=== PATIENT | female | born 1955 | race Caucasian/White ===

== ENCOUNTER 2016-10-13 16:54 | Observation (INO) ==
[2016-10-13 18:10] LABS: Bilirubin,Urine Negative (Negative); Blood,Urine Negative (Negative); Clarity,Urine Clear (Clear); Color,Urine Yellow (Yellow); Glucose,Urine (UA) Normal (Normal); Ketones,Urine Negative (Negative); Leukocyte Esterase,Urine Negative (Negative); Nitrite,Urine Negative (Negative); PH,Urine 6.5 pH Units (5.0-8.0); Protein,Urine Negative (Neg-Trace); Specific Gravity,Urine 1.022 (1.010-1.025); Urobilinogen,Urine Normal (Normal)
[2016-10-13] MEDS ORDERED: Ondansetron 4 MG/2 ML VIAL IVP ONE (18:25)
[2016-10-13] MEDS ORDERED: 0.9 % Sodium Chloride 1,000 ML IVC ONE (18:25)
[2016-10-13] MEDS ORDERED: Ketorolac 15 MG/ML VIAL IVP ONE (18:25)
--- NOTE | 2016-10-13 18:27 | Emergency Department Note ---
Disposition Clinical Impression: Diverticulitis Qualifiers: Diverticulitis site: large intestine Diverticulitis bleeding: without bleeding Diverticulitis complication: without perforation or abscess Qualified Code(s): K57.32 - Diverticulitis of large intestine without perforation or abscess without bleeding Disposition: Admitted As Inpatient Condition: Good Time of Disposition: 21:54 Abdominal Pain HPI - General Chief Complaint: ED Abdominal Pain Stated Complaint: Diverticulitis Time Seen by Provider: 10/13/16 18:13 Source: patient Nursing Notes Reviewed: Yes Vital Signs Reviewed: Yes - History of Present Illness HPI Narrative: 61-year-old diabetic complains of left-sided lower abdominal pain that started 3 nights ago. She mentions she took an ibuprofen PM to help her fall asleep, but the pain has been worsening. She mentioned she had felt feverish at home. She states she was at her PCP, Dr. Jean Baptiste, earlier today and was advised to come to the emergency department. She had a temp of 101.7 and heart rate of 115 her PCP office. She mentions her doctor was concerned for diverticulitis elevated white count. She does mention a history of diverticulitis she mentions he had a fever at home as well. She denies any bowel or bladder changes, melena, nausea, vomiting, bloody stools. Pain Scale: 7 - Related Data Home Medications Medication Instructions Recorded Confirmed Albuterol Sulfate [Proair Hfa] 2 puff IH Q6-8H PRN 10/13/16 10/13/16 Aspirin 81 mg PO DAILY 10/13/16 10/13/16 Fenofibrate Nanocrystallized 145 mg PO DAILY 10/13/16 10/13/16 [Tricor] Lactobacillus Acidophilus 1 mg PO DAILY 10/13/16 10/13/16 [Acidophilus Probiotic] Loratadine [Allergy Relief] 10 mg PO DAILY 10/13/16 10/13/16 Losartan Potassium [Cozaar] 100 mg PO DAILY 10/13/16 10/13/16 Meclizine [Antivert] 25 mg PO DAILY PRN 10/13/16 10/13/16 Minocycline [Minocin] 50 mg PO DAILY 10/13/16 10/13/16 Omeprazole 40 mg PO DAILY 10/13/16 10/13/16 Ondansetron HCl [Zofran] 8 mg PO DAILY PRN 10/13/16 10/13/16 metFORMIN [Glucophage] 500 mg PO BIDWM 10/13/16 10/13/16 Allergies Allergy/AdvReac Type Severity Reaction Status Date / Time No Known Allergies Allergy Verified 10/13/16 16:58 All systems ED: reviewed and negative except as stated. Constitutional: Reports: as per HPI. Denies: weakness Eyes: Denies: eye pain ENT ED: Denies: ear pain Cardiovascular: Denies: chest pain, palpitations Respiratory: Denies: cough, dyspnea, wheezes Gastrointestinal: Reports: as per HPI. 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 Absent: prolonged expiratory phase - Cardiovascular Cardiovascular exam: Present: normal rhythm, tachycardia - Abdominal Exam Abdominal exam: Present: soft, tenderness Abdominal tenderness: Present: LLQ - Extremities Exam Extremities exam: Present: normal inspection, full ROM, normal capillary refill - Back Exam Back exam: Present: full ROM - Neurological Exam Neurological exam: Present: alert, oriented X3 - Psychiatric Psychiatric exam: Present: normal affect, normal mood - Skin Skin exam: Present: warm, dry, intact, normal color. Absent: rash, cyanosis, diaphoresis Course Course Narrative: Patient presents with abdominal pain. He was seen earlier today at Dr. Jean Baptiste' s office, sent to ED for concern for diverticulitis. Patient seen and examined. She is in no acute distress. Does not look toxic. She does mention she had a fever prior to arrival. Triage vitals Slightly tachycardic otherwise normal vitals. Workup initiated. Patient declines narcotic medications at this time due to constipation. She denies any history of kidney disease, bleeding ulcers, and is agreeable to Toradol. - Reevaluation(s) Reevaluation #1: Results a CT show evidence for sigmoid diverticulitis. No evidence of perforation. Discussed patient with Dr. Luu who agreed with workup and evaluation and decision to admit. Time: 21:54 Reevaluation #2: Discussed with hospitalist Dr. kimberli ca, who agreed to accept patient for observation overnight. And we will consider discharge with outpatient therapy tomorrow. Time: 22:03 Vital Signs Temperature 99.6 F 10/13/16 16:56 Pulse Rate 107 10/13/16 16:56 Respiratory Rate 18 10/13/16 16:56 Blood Pressure 156/78 10/13/16 16:56 O2 Sat by Pulse Oximetry 96 10/13/16 16:56 Temperature 98.8 F 10/14/16 03:32 Pulse Rate 83 10/14/16 03:32 Respiratory Rate 13 10/14/16 03:32 Blood Pressure 117/77 10/14/16 03:32 O2 Sat by Pulse Oximetry 98 10/14/16 03:32 Oxygen Delivery Oxygen Delivery Room Air Abdominal Pain - MDM Narrative Medical decision making narrative: Abdomen/Pelvis CT 10/13/16 19:58 IMPRESSION: 1. Findings compatible with diverticulitis of the sigmoid colon. No evidence of perforation. 2. Hepatic steatosis. D/ / Joseph Pabon MD / Joseph Pabon MD Interpreting Provider: Joseph Pabon MD All Lab Results (24 Hours) 10/13/16 10/13/16 10/13/16 Range/Units 17:45 18:27 18:27 WBC 14.4 H (4.3-11.1) K/mcL RBC 5.09 H (3.82-4.97) M/mcL Hgb 14.7 (11.5-15.4) g/dL Hct 43.0 (35.3-44.9) % MCV 84.5 (83.0-100.0) fL MCH 28.9 (28.0-33.3) pg MCHC 34.2 (31.6-35.5) g/dL RDW 11.9 (11.5-14.5) % Plt Count 267 (140-400) K/mcL MPV 11.5 (9.4-12.4) fL Immature Gran % 0.3 (0-4) % Seg Neutrophils % 80.0 % Lymphocytes % 11.5 % Monocytes % 7.8 % Eosinophils % 0.2 % Basophils % 0.2 % Neutrophils # 11.5 H (1.6-8.9) K/mcL Lymphocytes # 1.7 (0.6-4.6) K/mcL Monocytes # 1.1 (0.0-1.3) K/mcL Eosinophils # 0.0 (0.0-0.6) K/mcL Basophils # 0.0 (0.0-0.2) K/mcL Sodium 134 L (136-145) mEq/L Potassium 3.8 (3.5-4.5) mEq/L Chloride 100 (98-109) mEq/L Carbon Dioxide 27 (19-29) mEq/L BUN 14 (7-20) mg/dL Creatinine 0.82 (0.57-1.11) mg/dL Est GFR ( Amer) > 60 (> 60) Est GFR (Non-Af Amer) > 60 (> 60) BUN/Creatinine Ratio 17 (6-26) Glucose 132 H (70-99) mg/dL Calculated Osmolality 280 (280-300) Lactic Acid (0.5-2.2) mmol/L Calcium 9.7 (8.6-10.8) mg/dL Total Bilirubin 1.0 (0.2-1.2) mg/dL Direct Bilirubin 0.4 (0.0-0.5) mg/dL Indirect Bilirubin 0.6 (0.0-1.2) mg/dL AST 15 (5-34) Units/L ALT 28 (0-55) Units/L Alkaline Phosphatase 77 (38-126) Units/L Serum Total Protein 7.3 (6.0-8.3) g/dL Albumin 3.7 (3.5-5.0) g/dL Globulin 3.6 H (2.4-3.5) g/dL Albumin/Globulin Ratio 1.0 L (1.1-2.2) Lipase < 10 (8-78) Units/L Urine Color Yellow (Yellow) Urine Clarity Clear (Clear) Urine pH 6.5 (5.0-8.0) pH Units Ur Specific [place] 1.022 (1.010-1.025) Urine Protein Negative (Neg-Trace) mg/dL Urine Glucose (UA) Normal (Normal) mg/dL Urine Ketones Negative (Negative) mg/dL Urine Blood Negative (Negative) Urine Nitrite Negative (Negative) Urine Bilirubin Negative (Negative) Urine Urobilinogen Normal (Normal) mg/dL Ur Leukocyte Esterase Negative (Negative) Ur Culture Indicated? NO (NO) 10/13/16 Range/Units 18:27 WBC (4.3-11.1) K/mcL RBC (3.82-4.97) M/mcL Hgb (11.5-15.4) g/dL Hct (35.3-44.9) % MCV (83.0-100.0) fL MCH (28.0-33.3) pg MCHC (31.6-35.5) g/dL RDW (11.5-14.5) % Plt Count (140-400) K/mcL MPV (9.4-12.4) fL Immature Gran % (0-4) % Seg Neutrophils % % Lymphocytes % % Monocytes % % Eosinophils % % Basophils % % Neutrophils # (1.6-8.9) K/mcL Lymphocytes # (0.6-4.6) K/mcL Monocytes # (0.0-1.3) K/mcL Eosinophils # (0.0-0.6) K/mcL Basophils # (0.0-0.2) K/mcL Sodium (136-145) mEq/L Potassium (3.5-4.5) mEq/L Chloride (98-109) mEq/L Carbon Dioxide (19-29) mEq/L BUN (7-20) mg/dL Creatinine (0.57-1.11) mg/dL Est GFR ( Amer) (> 60) Est GFR (Non-Af Amer) (> 60) BUN/Creatinine Ratio (6-26) Glucose (70-99) mg/dL Calculated Osmolality (280-300) Lactic Acid 1.5 (0.5-2.2) mmol/L Calcium (8.6-10.8) mg/dL Total Bilirubin (0.2-1.2) mg/dL Direct Bilirubin (0.0-0.5) mg/dL Indirect Bilirubin (0.0-1.2) mg/dL AST (5-34) Units/L ALT (0-55) Units/L Alkaline Phosphatase (38-126) Units/L Serum Total Protein (6.0-8.3) g/dL Albumin (3.5-5.0) g/dL Globulin (2.4-3.5) g/dL Albumin/Globulin Ratio (1.1-2.2) Lipase (8-78) Units/L Urine Color (Yellow) Urine Clarity (Clear) Urine pH (5.0-8.0) pH Units Ur Specific [place] (1.010-1.025) Urine Protein (Neg-Trace) mg/dL Urine Glucose (UA) (Normal) mg/dL Urine Ketones (Negative) mg/dL Urine Blood (Negative) Urine Nitrite (Negative) Urine Bilirubin (Negative) Urine Urobilinogen (Normal) mg/dL Ur Leukocyte Esterase (Negative) Ur Culture Indicated? (NO) - Lab Data Lab results reviewed: Yes I reviewed the patient's lab results. Result diagrams: 10/13/16 18:27 10/13/16 18:27 Lab Results 10/13/16 10/13/16 10/13/16 Range/Units 17:45 18:27 18:27 WBC 14.4 H (4.3-11.1) K/mcL RBC 5.09 H (3.82-4.97) M/mcL Hgb 14.7 (11.5-15.4) g/dL Hct 43.0 (35.3-44.9) % MCV 84.5 (83.0-100.0) fL MCH 28.9 (28.0-33.3) pg MCHC 34.2 (31.6-35.5) g/dL RDW 11.9 (11.5-14.5) % Plt Count 267 (140-400) K/mcL MPV 11.5 (9.4-12.4) fL Immature Gran % 0.3 (0-4) % Seg Neutrophils % 80.0 % Lymphocytes % 11.5 % Monocytes % 7.8 % Eosinophils % 0.2 % Basophils % 0.2 % Neutrophils # 11.5 H (1.6-8.9) K/mcL Lymphocytes # 1.7 (0.6-4.6) K/mcL Monocytes # 1.1 (0.0-1.3) K/mcL Eosinophils # 0.0 (0.0-0.6) K/mcL Basophils # 0.0 (0.0-0.2) K/mcL Sodium 134 L (136-145) mEq/L Potassium 3.8 (3.5-4.5) mEq/L Chloride 100 (98-109) mEq/L Carbon Dioxide 27 (19-29) mEq/L BUN 14 (7-20) mg/dL Creatinine 0.82 (0.57-1.11) mg/dL Est GFR ( Amer) > 60 (> 60) Est GFR (Non-Af Amer) > 60 (> 60) BUN/Creatinine Ratio 17 (6-26) Glucose 132 H (70-99) mg/dL Calculated Osmolality 280 (280-300) Lactic Acid (0.5-2.2) mmol/L Calcium 9.7 (8.6-10.8) mg/dL Total Bilirubin 1.0 (0.2-1.2) mg/dL Direct Bilirubin 0.4 (0.0-0.5) mg/dL Indirect Bilirubin 0.6 (0.0-1.2) mg/dL AST 15 (5-34) Units/L ALT 28 (0-55) Units/L Alkaline Phosphatase 77 (38-126) Units/L Serum Total Protein 7.3 (6.0-8.3) g/dL Albumin 3.7 (3.5-5.0) g/dL Globulin 3.6 H (2.4-3.5) g/dL Albumin/Globulin Ratio 1.0 L (1.1-2.2) Lipase < 10 (8-78) Units/L Urine Color Yellow (Yellow) Urine Clarity Clear (Clear) Urine pH 6.5 (5.0-8.0) pH Units Ur Specific [place] 1.022 (1.010-1.025) Urine Protein Negative (Neg-Trace) mg/dL Urine Glucose (UA) Normal (Normal) mg/dL Urine Ketones Negative (Negative) mg/dL Urine Blood Negative (Negative) Urine Nitrite Negative (Negative) Urine Bilirubin Negative (Negative) Urine Urobilinogen Normal (Normal) mg/dL Ur Leukocyte Esterase Negative (Negative) Ur Culture Indicated? NO (NO) 10/13/16 Range/Units 18:27 WBC (4.3-11.1) K/mcL RBC (3.82-4.97) M/mcL Hgb (11.5-15.4) g/dL Hct (35.3-44.9) % MCV (83.0-100.0) fL MCH (28.0-33.3) pg MCHC (31.6-35.5) g/dL RDW (11.5-14.5) % Plt Count (140-400) K/mcL MPV (9.4-12.4) fL Immature Gran % (0-4) % Seg Neutrophils % % Lymphocytes % % Monocytes % % Eosinophils % % Basophils % % Neutrophils # (1.6-8.9) K/mcL Lymphocytes # (0.6-4.6) K/mcL Monocytes # (0.0-1.3) K/mcL Eosinophils # (0.0-0.6) K/mcL Basophils # (0.0-0.2) K/mcL Sodium (136-145) mEq/L Potassium (3.5-4.5) mEq/L Chloride (98-109) mEq/L Carbon Dioxide (19-29) mEq/L BUN (7-20) mg/dL Creatinine (0.57-1.11) mg/dL Est GFR ( Amer) (> 60) Est GFR (Non-Af Amer) (> 60) BUN/Creatinine Ratio (6-26) Glucose (70-99) mg/dL Calculated Osmolality (280-300) Lactic Acid 1.5 (0.5-2.2) mmol/L Calcium (8.6-10.8) mg/dL Total Bilirubin (0.2-1.2) mg/dL Direct Bilirubin (0.0-0.5) mg/dL Indirect Bilirubin (0.0-1.2) mg/dL AST (5-34) Units/L ALT (0-55) Units/L Alkaline Phosphatase (38-126) Units/L Serum Total Protein (6.0-8.3) g/dL Albumin (3.5-5.0) g/dL Globulin (2.4-3.5) g/dL Albumin/Globulin Ratio (1.1-2.2) Lipase (8-78) Units/L Urine Color (Yellow) Urine Clarity (Clear) Urine pH (5.0-8.0) pH Units Ur Specific [place] (1.010-1.025) Urine Protein (Neg-Trace) mg/dL Urine Glucose (UA) (Normal) mg/dL Urine Ketones (Negative) mg/dL Urine Blood (Negative) Urine Nitrite (Negative) Urine Bilirubin (Negative) Urine Urobilinogen (Normal) mg/dL Ur Leukocyte Esterase (Negative) Ur Culture Indicated? (NO) - Radiology Data Radiology results reviewed: Yes I reviewed the patient's radiology results. Attestation Statement - Attestation Attestation: I, Mason Luu, examined this patient and my medical decision-making was reviewed with the MAINTENANCE ENGINEER OIL FIELD/PA/Advanced Practice Nurse/Resident Physician. I agree with the documented findings, disposition and treatment plan as described except to the extent set forth below. 61-year-old female presents with concerns of left lower quadrant abdominal pain. Patient states that this feels similar to her previous diverticulitis however this feels worse. Patient states she was advised to come to the hospital by her primary care provider for further evaluation and likely IV antibiotics. Patient has a CT which shows diverticulitis. Vital signs have been stable. She states she is tolerating by mouth intake well at home however she does not feel comfortable returning home secondary to increased pain. Patient given first dose of antibiotics in the emergency department. She will be admitted to the hospital for further care and evaluation of diverticulitis.
[2016-10-13 18:32] LABS: Basophils % 0.2 %; Eosinophils % 0.2 %; Hemoglobin 14.7 g/dL (11.5-15.4); Immature Granulocytes % 0.3 % (0-4); Lymphocytes # 1.7 K/mcL (0.6-4.6); Lymphocytes % 11.5 %; Mean Corpuscular HGB Conc 34.2 g/dL (31.6-35.5); Mean Corpuscular Hemoglobin 28.9 pg (28.0-33.3); Mean Corpuscular Volume 84.5 fL (83.0-100.0); Mean Platelet Volume 11.5 fL (9.4-12.4); Monocytes # 1.1 K/mcL (0.0-1.3); Monocytes % 7.8 %; Neutrophils # 11.5 K/mcL (1.6-8.9); Platelet Count 267 K/mcL (140-400); Red Blood Count 5.09 M/mcL (3.82-4.97); Red Cell Distribution Width 11.9 % (11.5-14.5)
[2016-10-13 18:49] LABS: Alanine Aminotransferase 28 Units/L (0-55); Albumin 3.7 g/dL (3.5-5.0); Alkaline Phosphatase 77 Units/L (38-126); Aspartate Amino Transferase 15 Units/L (5-34); BUN/Creatinine Ratio 17 (6-26); Bilirubin,Direct 0.4 mg/dL (0.0-0.5); Bilirubin,Indirect 0.6 mg/dL (0.0-1.2); Blood Urea Nitrogen 14 mg/dL (7-20); Calcium 9.7 mg/dL (8.6-10.8); Carbon Dioxide 27 mEq/L (19-29); Chloride 100 mEq/L (98-109); Globulin 3.6 g/dL (2.4-3.5); Glucose 132 mg/dL (70-99); Osmolality,Calculated 280 (280-300); Potassium 3.8 mEq/L (3.5-4.5); Sodium 134 mEq/L (136-145); Total Protein 7.3 g/dL (6.0-8.3); eGFR For African Americans > 60 (> 60); eGFR For Non-African Americans > 60 (> 60)
[2016-10-13 18:52] LABS: Lipase < 10 Units/L (8-78)
[2016-10-13] MEDS ORDERED: MetroNIDAZOLE 500 MG/100 ML 500 MG/100 ML BAG IVPB ONE (21:37)
[2016-10-14] MEDS ORDERED: *HR* Morphine 2 MG/ML SYRINGE IVP PRN (04:51)
[2016-10-14] MEDS ORDERED: Naloxone 0.4 MG/ML INJ IVP PRN (04:51)
[2016-10-14] MEDS ORDERED: Ondansetron 4 MG/2 ML VIAL IVP PRN (04:51)
[2016-10-14] MEDS ORDERED: Acetaminophen 325 MG TABLET PO PRN (05:46)
[2016-10-14] MEDS ORDERED: *HR* OxyCODONE Immed Rel 5 MG TABLET PO PRN (05:46)
--- NOTE | 2016-10-14 05:56 | Internal Med History&Physical ---
Date of Encounter: 10/14/16 Time of Encounter: 05:54 Assessment and Plan (1) Acute diverticulitis Current visit: Yes Status: Acute Patient has acute diverticulitis as suggested by left lower quadrant pain and imaging findings consistent with diverticulitis. She has some nausea, no vomiting, questionable oral intake. Will place her in observation and start IV antibiotics and IV fluids. If she tolerates a diet will consider switching to oral medication. (2) Essential hypertension Current visit: Yes Status: Acute Continue with losartan. (3) DVT prophylaxis Current visit: Yes Status: Acute Encourage early ambulation. She does not require pharmacological prophylaxis. Internal Medicine - H&P: HPI Chief complaint: Abdominal pain Admitted From: Emergency Dept Plans for Post Hospital Care: Hospice - Home History of present illness: Ms. Vizcaino is a 61 year old female who presented to the hospital with abdominal pain which started 4 days ago and progressively got worse, located in the left lower quadrant, worse with movement and ambulation, described as cramping, became severe today, graded as 8/10, associated with fever of 101 at home. She was evaluated at the urgent care and referred to the hospital. Workup done in the emergency department was pertinent for elevated white blood cell count. CT of the abdomen and pelvis showed findings suggestive of acute diverticulitis. A 10 point review of systems was negative except as above Past medical history: History of diverticulitis, history of hypertension Family history: Negative for premature coronary artery disease and colon cancer Social history: Denies tobacco alcohol and drug use. Past Med Surg Social Fam HX - Past Medical History Medical history: diabetes, hypertension Psychiatric history: depression - Social History Smoking Status: Never smoker Packs per day: 1/2 pack Smokeless Tobacco Status: No Alcohol use: none Drug use: none - Family History Father Living Status: Cause of : Cirrhosis Mother Living Status: Cause of : surgical complications Internal Medicine - H&P: Meds Albuterol Sulfate [Proair Hfa] 2 puff IH Q6-8H PRN 10/13/16 [History] Aspirin 81 mg PO DAILY 10/13/16 [History] Fenofibrate Nanocrystallized [Tricor] 145 mg PO DAILY 10/13/16 [History] Lactobacillus Acidophilus [Acidophilus Probiotic] 1 mg PO DAILY 10/13/16 [ History] Loratadine [Allergy Relief] 10 mg PO DAILY 10/13/16 [History] Losartan Potassium [Cozaar] 100 mg PO DAILY 10/13/16 [History] Meclizine [Antivert] 25 mg PO DAILY PRN 10/13/16 [History] Minocycline [Minocin] 50 mg PO DAILY 10/13/16 [History] Omeprazole 40 mg PO DAILY 10/13/16 [History] Ondansetron HCl [Zofran] 8 mg PO DAILY PRN 10/13/16 [History] metFORMIN [Glucophage] 500 mg PO BIDWM 10/13/16 [History] Allergies No Known Allergies Allergy (Verified 10/13/16 16:58) All Systems PM: A 10-system review of systems was performed and is negative for pertinent findings except as documented above in the HPI. - Constitutional Vitals: Temp Pulse Resp BP Pulse Ox 98.8 F 83 13 117/77 98 10/14/16 03:32 10/14/16 03:32 10/14/16 03:32 10/14/16 03:32 10/14/16 03:32 - Respiratory Respiratory exam: Present: CTAB. Absent: accessory muscle use, rales, rhonchi, wheezes - Cardiovascular Cardiovascular exam: Present: RRR, +S1, +S2. Absent: diastolic murmur, gallop, rubs, systolic murmur - GI/Abdominal GI/Abdominal exam: Present: normal bowel sounds, soft, no peritoneal signs. Absent: distended, tenderness - Extremities Exam Extremities exam: Present: warm, radial pulses palpable and symetrical. Absent : calf tenderness, cyanotic, pedal edema - Skin Skin exam: Present: dry, intact Internal Med - H&P Results - Labs CBC & Chem 7: 10/13/16 18:27 10/13/16 18:27
[2016-10-14] MEDS ORDERED: Albuterol 2.5 MG/3 ML NEBULIZER IH PRN (05:58)
[2016-10-14] MEDS: Loratadine 10 MG TABLET PO SCH (08:30)
[2016-10-14] MEDS: Pantoprazole 40 MG VIAL IVP SCH (08:33)
[2016-10-14] MEDS: MetroNIDAZOLE 500 MG/100 ML 500 MG/100 ML BAG IVPB SCH ×2 (08:33→16:08)
[2016-10-14] MEDS ORDERED: Levofloxacin 750 MG/150 ML 750 MG/150 ML BAG IVPB SCH (09:00)
--- NOTE | 2016-10-14 10:18 | Event Note ---
Date of Encounter: 10/14/16 Time of Encounter: 09:45 61-year-old female with history of hypertension and diabetes was admitted with left lower abdominal pain and nausea. CT abdomen/pelvis showed sigmoid diverticulitis. Patient seen and examined at bedside. Reports improvement in left lower abdominal pain. Chest-S1, S2 heard. Lungs are clear to auscultation. Abdomen-soft, significant tenderness in left lower quadrant. Labs reviewed-leukocytosis with WBC 14.4 Acute sigmoid diverticulitis-continue medical management with bowel rest, IV hydration, when necessary antiemetics and pain control with when necessary IV morphine. We will start clear liquid diet later this evening and advance as tolerated. Continue IV antibiotics-Levaquin and Flagyl. Patient will need outpatient colonoscopy in 4-6 weeks.
[2016-10-15] MEDS: MetroNIDAZOLE 500 MG/100 ML 500 MG/100 ML BAG IVPB SCH ×2 (00:28→08:45)
[2016-10-15 04:31] LABS: Basophils % 0.6 %; Eosinophils # 0.2 K/mcL (0.0-0.6); Eosinophils % 2.4 %; Hematocrit 37.6 % (35.3-44.9); Immature Granulocytes % 0.3 % (0-4); Lymphocytes # 1.5 K/mcL (0.6-4.6); Lymphocytes % 20.8 %; Mean Corpuscular Hemoglobin 28.7 pg (28.0-33.3); Mean Corpuscular Volume 84.3 fL (83.0-100.0); Mean Platelet Volume 11.6 fL (9.4-12.4); Monocytes # 0.7 K/mcL (0.0-1.3); Monocytes % 10.3 %; Neutrophils # 4.7 K/mcL (1.6-8.9); Platelet Count 196 K/mcL (140-400); Red Blood Count 4.46 M/mcL (3.82-4.97); Red Cell Distribution Width 11.7 % (11.5-14.5); Segmented Neutrophils % 65.6 %
[2016-10-15 04:34] LABS: Hemoglobin 12.8 g/dL (11.5-15.4)
[2016-10-15 04:46] LABS: Alanine Aminotransferase 19 Units/L (0-55); Albumin/Globulin Ratio 0.8 (1.1-2.2); Alkaline Phosphatase 73 Units/L (38-126); Aspartate Amino Transferase 14 Units/L (5-34); BUN/Creatinine Ratio 19 (6-26); Bilirubin,Total 0.7 mg/dL (0.2-1.2); Blood Urea Nitrogen 14 mg/dL (7-20); Carbon Dioxide 24 mEq/L (19-29); Chloride 107 mEq/L (98-109); Globulin 3.5 g/dL (2.4-3.5); Glucose 117 mg/dL (70-99); Magnesium 1.9 mg/dL (1.6-2.6); Osmolality,Calculated 286 (280-300); Potassium 4.1 mEq/L (3.5-4.5); Sodium 137 mEq/L (136-145); Total Protein 6.3 g/dL (6.0-8.3); eGFR For African Americans > 60 (> 60); eGFR For Non-African Americans > 60 (> 60)
[2016-10-15 04:59] LABS: Albumin 2.8 g/dL (3.5-5.0)
[2016-10-15] MEDS ORDERED: Levofloxacin 500 MG/100 ML 500 MG/100 ML BAG IVPB SCH (09:00)
[2016-10-15] MEDS: Loratadine 10 MG TABLET PO SCH (11:13)
[2016-10-15] MEDS: Pantoprazole 40 MG VIAL IVP SCH (11:13)
--- NOTE | 2016-10-15 13:26 | Discharge Summary ---
Date of Encounter: 10/15/16 Time of Encounter: 13:16 - Discharge Diagnosis (1) Acute diverticulitis Priority: Primary Status: Acute (2) Diabetes mellitus Priority: Secondary Status: Chronic Qualifiers: Diabetes mellitus type: type 2 Diabetes mellitus complication status: with unspecified complications Diabetes mellitus long term care administrator insulin use: without long term care administrator use Qualified Code(s): E11.8 - Type 2 diabetes mellitus with unspecified complications (3) Essential hypertension Priority: Secondary Status: Chronic - Discharge Medications Prescriptions: levoFLOXacin [Levaquin] 500 mg PO DAILY #7 tablet metroNIDAZOLE [Flagyl] 500 mg PO TID #21 tablet Home Medications: Albuterol Sulfate [Proair Hfa] 2 puff IH Q6-8H PRN 10/13/16 [History] Aspirin 81 mg PO DAILY 10/13/16 [History] Fenofibrate Nanocrystallized [Tricor] 145 mg PO DAILY 10/13/16 [History] Lactobacillus Acidophilus [Acidophilus Probiotic] 1 mg PO DAILY 10/13/16 [ History] Loratadine [Allergy Relief] 10 mg PO DAILY 10/13/16 [History] Losartan Potassium [Cozaar] 100 mg PO DAILY 10/13/16 [History] Meclizine [Antivert] 25 mg PO DAILY PRN 10/13/16 [History] Minocycline [Minocin] 50 mg PO DAILY 10/13/16 [History] Omeprazole 40 mg PO DAILY 10/13/16 [History] Ondansetron HCl [Zofran] 8 mg PO DAILY PRN 10/13/16 [History] metFORMIN [Glucophage] 500 mg PO BIDWM 10/13/16 [History] levoFLOXacin [Levaquin] 500 mg PO DAILY #7 tablet 10/15/16 [Rx] metroNIDAZOLE [Flagyl] 500 mg PO TID #21 tablet 10/15/16 [Rx] Allergies/Adverse Reactions: Allergies No Known Allergies Allergy (Verified 10/13/16 16:58) - Notes to Outpatient Provider Patient may need interval Colonoscopy in 4-6 weeks, to be scheduled as outpatient. Please follow up, thanks. Date of admission: 10/13/16 22:26 Primary care physician: Ortega Carbone MD Discharging clinician: Trudi Moe Anticipated date of discharge: 10/15/16 - Patient Status Disposition: Home, Self-Care Condition: Good Functional capacity at discharge: independent ambulation Overall status at discharge: patient is progressing back to baseline - Discharge Instructions Instructions: Diverticulitis (DC), Diverticulitis Diet (DC) Follow Up With: Ortega Carbone MD [Primary Care Provider] - 10/22/16 2:15 pm - Diet and Activity Activity: resume usual activities as tolerated Diet: diabetic diet, low fat, low cholesterol, low salt diet Hospital course: Ms. Vizcaino is a 61 year old female admitted with sudden onset of left lower abdominal pain, nausea, vomiting. She was noted to have leukocytosis. CT abdomen/pelvis done in the emergency room showed acute sigmoid diverticulitis. Patient was started on IV antibiotics along with bowel rest, IV hydration and supportive care. She improved gradually and is currently able to tolerate oral diet. She is now medically stable for discharge to complete a course of oral antibiotics and outpatient follow-up. Patient will need interval colonoscopy to be arranged as an outpatient, in 6-8 weeks. - Time Spent with Patient Total time spent providing and/or coordinating discharge services: Greater than 30 minutes (45 min) - Constitutional Vitals: Temp Pulse Resp BP Pulse Ox 97.7 F 75 18 125/76 98 10/15/16 12:02 10/15/16 12:02 10/15/16 12:02 10/15/16 12:02 10/15/16 12:02 General appearance: Present: A&O X 3, answers questions appropriately - GI/Abdominal GI/Abdominal exam: Present: normal bowel sounds, soft (mild LLQ tenderness), no peritoneal signs. Absent: distended, tenderness
[2016-10-15 14:45] VITALS: BP 121/72
== END 2016-10-15 15:39 | disposition home or self-care (01) ==
LOC: EMEROO 16:54 → 3ANU 16:54
PROVIDERS: ADMIT Internal Medicine; ATTEND Internal Medicine

== ENCOUNTER 2017-01-19 10:58 | Observation (INO) ==
--- NOTE | 2017-01-19 11:09 | Emergency Department Note ---
Disposition Clinical Impression: Vertigo Abdominal pain Qualifiers: Abdominal location: unspecified location Qualified Code(s): R10.9 - Unspecified abdominal pain Diverticulitis Qualifiers: Diverticulitis site: large intestine Diverticulitis bleeding: without bleeding Diverticulitis complication: without perforation or abscess Qualified Code(s): K57.32 - Diverticulitis of large intestine without perforation or abscess without bleeding Disposition: Admitted As Inpatient Condition: Fair Referrals: Ortega Carbone MD [Primary Care Provider] - Forms: ED Satisfaction Letter Time of Disposition: 13:27 Dizziness HPI - General Chief Complaint: ED Dizziness Stated Complaint: Vertigo, N/V Time Seen by Provider: 01/19/17 11:04 Source: patient, EMS Mode of arrival: EMS Limitations: no limitations Nursing Notes Reviewed: Yes Vital Signs Reviewed: Yes - History of Present Illness HPI Narrative: 61-year-old who has a history of vertigo who went to see her doctor yesterday due to abdominal pain and was diagnosed with diverticular disease based on examination was given a shot of antibiotics and started on to outpatient antibiotics which he took the medicine this morning she became very dizzy. She does have a history of underlying vertigo. 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 Timing: sudden onset Description: "room spinning", difficulty walking History of similar episodes: Yes History of trauma: No Severity: severe Improves with: nothing Worsens with: movement Associated symptoms: Reports: nausea, vomiting - Related Data Home Medications Medication Instructions Recorded Confirmed Albuterol Sulfate [Proair Hfa] 2 puff IH Q6-8H PRN 10/13/16 12/18/16 Aspirin 81 mg PO DAILY 10/13/16 12/18/16 Fenofibrate Nanocrystallized 145 mg PO DAILY 10/13/16 12/18/16 [Tricor] Lactobacillus Acidophilus 1 mg PO DAILY 10/13/16 12/18/16 [Acidophilus Probiotic] Loratadine [Allergy Relief] 10 mg PO DAILY 10/13/16 12/18/16 Losartan Potassium [Cozaar] 100 mg PO DAILY 10/13/16 12/18/16 Meclizine [Antivert] 25 mg PO DAILY PRN 10/13/16 12/18/16 Minocycline [Minocin] 50 mg PO 3XW 10/13/16 12/18/16 Omeprazole 40 mg PO DAILY 10/13/16 12/18/16 Ondansetron HCl [Zofran] 8 mg PO DAILY PRN 10/13/16 10/13/16 metFORMIN [Glucophage] 500 mg PO BIDWM 10/13/16 12/18/16 Calcium Carbonate [Calcium] 500 mg PO DAILY 12/18/16 12/18/16 Psyllium Husk [Daily Fiber] 0.52 gm PO DAILY 12/18/16 12/18/16 Allergies Allergy/AdvReac Type Severity Reaction Status Date / Time No Known Allergies Allergy Verified 01/19/17 13:23 All systems ED: reviewed and negative except as stated. Constitutional: Denies: fever, chills, weakness, weight change Eyes: Denies: eye pain, eye discharge, vision change ENT ED: Denies: ear pain, throat pain, dental pain, hearing loss, epistaxis, congestion, dysphagia Cardiovascular: Denies: chest pain, palpitations, dyspnea on exertion, edema, syncope Respiratory: Denies: cough, dyspnea, wheezes, hemoptysis, stridor Gastrointestinal: Reports: abdominal pain. Denies: nausea, vomiting, diarrhea, constipation, hematemesis, melena, hematochezia Genitourinary: Denies: dysuria, frequency, hematuria, discharge Musculoskeletal: Denies: back pain, neck pain, arthralgia, myalgia Integumentary: Denies: rash, abrasion, lesions Neurological: Reports: vertigo. 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 - Social History Smoking Status: Never smoker Smokeless Tobacco Status: No Alcohol use: Reports: none Drug use: Reports: none Physical Exam - General Limitations: no limitations General appearance: alert, in no apparent distress - Head Head exam: atraumatic, normocephalic, normal inspection - Eye Eye exam: Present: normal appearance, PERRL, EOMI - ENT ENT exam: normal exam, normal oropharynx, mucous membranes moist - Neck Neck exam: Present: normal inspection, full ROM, trachea midline - Chest Chest inspection: Present: normal inspection, symmetric chest wall rise - Respiratory Respiratory exam: Present: normal lung sounds bilaterally - Cardiovascular Cardiovascular exam: Present: regular rate, normal rhythm, normal heart sounds - Abdominal Exam Abdominal exam: Present: soft, Non-Tender. Absent: tenderness, distention, guarding, rebound, rigidity - Extremities Exam Extremities exam: Present: normal inspection, full ROM. Absent: tenderness, pedal edema - Expanded Lower Extremity Exam Neurovascular/Tendon exam: Absent: motor deficit, sensory deficit, tendon deficit Gait: observed and normal - Back Exam Back exam: Present: normal inspection, full ROM. Absent: tenderness - Neurological Exam Neurological exam: Present: alert, oriented X3 - Psychiatric Psychiatric exam: Present: normal affect, normal mood - Skin Skin exam: Present: warm, dry, intact, normal color Course - Reevaluation(s) Reevaluation #1: 61-year-old with a history of previous diverticulitis and vertigo who comes in with abdominal pain and severe vertigo. The patient was seen by her doctor yesterday for abdominal pain and started on antibiotics. She's not sure whether the antibiotics triggered the vertigo but she has a lot of difficulty with the spinning and nausea vomiting not able to keep anything down. Then IV benzodiazepine along with meclizine here continues to have pretty severe dizziness with movement. Time: 13:25 - Consultations Consultation #1: Discussed with , it. Time: 13:24 Vital Signs Temperature 98.7 F 01/19/17 11:02 Pulse Rate 90 01/19/17 11:02 Respiratory Rate 24 01/19/17 11:02 Blood Pressure 165/99 01/19/17 11:02 O2 Sat by Pulse Oximetry 100 01/19/17 11:02 Temperature 98.7 F 01/19/17 11:02 Pulse Rate 93 01/19/17 12:20 Respiratory Rate 17 01/19/17 12:20 Blood Pressure 165/99 01/19/17 11:02 O2 Sat by Pulse Oximetry 95 01/19/17 12:20 Oxygen Delivery Oxygen Delivery Room Air Dizziness - Lab Data Lab results reviewed: Yes I reviewed the patient's lab results. Result diagrams: 01/19/17 11:23 01/19/17 11:23 Lab Results 01/19/17 01/19/17 01/19/17 Range/Units 11:15 11:23 11:23 WBC 8.7 (4.3-11.1) K/mcL RBC 5.12 H (3.82-4.97) M/mcL Hgb 14.6 (11.5-15.4) g/dL Hct 41.8 (35.3-44.9) % MCV 81.6 L (83.0-100.0) fL MCH 28.5 (28.0-33.3) pg MCHC 34.9 (31.6-35.5) g/dL RDW 11.8 (11.5-14.5) % Plt Count 257 (140-400) K/mcL MPV 11.5 (9.4-12.4) fL Immature Gran % 0.3 (0-4) % Seg Neutrophils % 87.9 % Lymphocytes % 8.0 % Monocytes % 3.3 % Eosinophils % 0.3 % Basophils % 0.2 % Neutrophils # 7.6 (1.6-8.9) K/mcL Lymphocytes # 0.7 (0.6-4.6) K/mcL Monocytes # 0.3 (0.0-1.3) K/mcL Eosinophils # 0.0 (0.0-0.6) K/mcL Basophils # 0.0 (0.0-0.2) K/mcL Sodium 139 (136-145) mEq/L Potassium 3.4 L (3.5-4.5) mEq/L Chloride 103 (98-109) mEq/L Carbon Dioxide 21 (19-29) mEq/L BUN 21 H (7-20) mg/dL Creatinine 0.89 (0.57-1.11) mg/dL Est GFR ( Amer) > 60 (> 60) Est GFR (Non-Af Amer) > 60 (> 60) BUN/Creatinine Ratio 24 (6-26) Glucose 179 H (70-99) mg/dL Calculated Osmolality 295 (280-300) Calcium 10.1 (8.6-10.8) mg/dL Troponin I (0-0.03) ng/mL Urine Color [place] A (Yellow) Urine Clarity Cloudy A (Clear) Urine pH 8.5 H (5.0-8.0) pH Units Ur Specific [place] > 1.030 H (1.010-1.025) Urine Protein 100 H (Neg-Trace) mg/dL Urine Glucose (UA) Normal (Normal) mg/dL Urine Ketones 15 H (Negative) mg/dL Urine Blood Negative (Negative) Urine Nitrite Negative (Negative) Urine Bilirubin Small H (Negative) Urine Urobilinogen Normal (Normal) mg/dL Ur Leukocyte Esterase Small H (Negative) Urine Microscopic RBC 0-3 (0-3) per hpf Urine Microscopic WBC 0-3 (0-3) per hpf Ur Squamous Epith Cells Many H (None-Few) per lpf Amorphous Sediment Moderate H (Few) Urine Bacteria None Seen (None-Few) per hpf Granular Casts Few H (None Seen) per lpf Urine Mucus Moderate H (Few) Ur Culture Indicated? YES A (NO) 01/19/17 Range/Units 11:23 WBC (4.3-11.1) K/mcL RBC (3.82-4.97) M/mcL Hgb (11.5-15.4) g/dL Hct (35.3-44.9) % MCV (83.0-100.0) fL MCH (28.0-33.3) pg MCHC (31.6-35.5) g/dL RDW (11.5-14.5) % Plt Count (140-400) K/mcL MPV (9.4-12.4) fL Immature Gran % (0-4) % Seg Neutrophils % % Lymphocytes % % Monocytes % % Eosinophils % % Basophils % % Neutrophils # (1.6-8.9) K/mcL Lymphocytes # (0.6-4.6) K/mcL Monocytes # (0.0-1.3) K/mcL Eosinophils # (0.0-0.6) K/mcL Basophils # (0.0-0.2) K/mcL Sodium (136-145) mEq/L Potassium (3.5-4.5) mEq/L Chloride (98-109) mEq/L Carbon Dioxide (19-29) mEq/L BUN (7-20) mg/dL Creatinine (0.57-1.11) mg/dL Est GFR ( Amer) (> 60) Est GFR (Non-Af Amer) (> 60) BUN/Creatinine Ratio (6-26) Glucose (70-99) mg/dL Calculated Osmolality (280-300) Calcium (8.6-10.8) mg/dL Troponin I 0.00 (0-0.03) ng/mL Urine Color (Yellow) Urine Clarity (Clear) Urine pH (5.0-8.0) pH Units Ur Specific [place] (1.010-1.025) Urine Protein (Neg-Trace) mg/dL Urine Glucose (UA) (Normal) mg/dL Urine Ketones (Negative) mg/dL Urine Blood (Negative) Urine Nitrite (Negative) Urine Bilirubin (Negative) Urine Urobilinogen (Normal) mg/dL Ur Leukocyte Esterase (Negative) Urine Microscopic RBC (0-3) per hpf Urine Microscopic WBC (0-3) per hpf Ur Squamous Epith Cells (None-Few) per lpf Amorphous Sediment (Few) Urine Bacteria (None-Few) per hpf Granular Casts (None Seen) per lpf Urine Mucus (Few) Ur Culture Indicated? (NO) - Radiology Data Radiology results reviewed: Yes I reviewed the patient's radiology results. Chest X-Ray 01/19/17 11:04 IMPRESSION: No active cardiopulmonary disease D/ / Nehemias Valenzuela MD / Nehemias Valenzuela MD Interpreting Provider: Nehemias Valenzuela MD Head CT 01/19/17 11:04 IMPRESSION: No acute intracranial abnormality. D/ / Jermaine Martínez MD / Jermaine Martínez MD Interpreting Provider: Jermaine Martínez MD Abdomen/Pelvis CT 01/19/17 11:06 IMPRESSION: 1. Uncomplicated sigmoid diverticulitis 2. Hepatic steatosis D/ / Nehemias Valenzuela MD / Nehemias Valenzuela MD Interpreting Provider: Nehemias Valenzuela MD - EKG Data EKG attestation: Yes I reviewed and interpreted this EKG. EKG shows normal: sinus rhythm Rate: normal Rhythm: PVC's [place]/QRS: normal Interpretation: nonspecific ST-T wave changes
[2017-01-19] MEDS ORDERED: Ondansetron 4 MG/2 ML VIAL IVP ONE (11:12)
[2017-01-19 11:26] LABS: Bilirubin,Urine Small (Negative); Blood,Urine Negative (Negative); Clarity,Urine Cloudy (Clear); Color,Urine Orange (Yellow); Glucose,Urine (UA) Normal (Normal); Ketones,Urine 15 mg/dL (Negative); Leukocyte Esterase,Urine Small (Negative); Nitrite,Urine Negative (Negative); PH,Urine 8.5 pH Units (5.0-8.0); Protein,Urine 100 mg/dL (Neg-Trace); Specific Gravity,Urine > 1.030 (1.010-1.025); Urobilinogen,Urine Normal (Normal)
[2017-01-19 11:29] LABS: Bacteria,Urine None Seen per hpf (None-Few); Squamous Epithelial Cell,Urine Many per lpf (None-Few); WBC,Urine 0-3 per hpf (0-3)
[2017-01-19 11:32] LABS: Basophils % 0.2 %; Eosinophils % 0.3 %; Hematocrit 41.8 % (35.3-44.9); Hemoglobin 14.6 g/dL (11.5-15.4); Immature Granulocytes % 0.3 % (0-4); Lymphocytes # 0.7 K/mcL (0.6-4.6); Mean Corpuscular HGB Conc 34.9 g/dL (31.6-35.5); Mean Corpuscular Hemoglobin 28.5 pg (28.0-33.3); Mean Corpuscular Volume 81.6 fL (83.0-100.0); Mean Platelet Volume 11.5 fL (9.4-12.4); Monocytes # 0.3 K/mcL (0.0-1.3); Monocytes % 3.3 %; Neutrophils # 7.6 K/mcL (1.6-8.9); Platelet Count 257 K/mcL (140-400); Red Blood Count 5.12 M/mcL (3.82-4.97); Red Cell Distribution Width 11.8 % (11.5-14.5); Segmented Neutrophils % 87.9 %
[2017-01-19 11:43] LABS: BUN/Creatinine Ratio 24 (6-26); Blood Urea Nitrogen 21 mg/dL (7-20); Calcium 10.1 mg/dL (8.6-10.8); Carbon Dioxide 21 mEq/L (19-29); Chloride 103 mEq/L (98-109); Glucose 179 mg/dL (70-99); Osmolality,Calculated 295 (280-300); Potassium 3.4 mEq/L (3.5-4.5); Sodium 139 mEq/L (136-145); eGFR For African Americans > 60 (> 60); eGFR For Non-African Americans > 60 (> 60)
[2017-01-19] MEDS ORDERED: *HR* LORazepam 2 MG/ML VIAL IVP ONE (11:49)
[2017-01-19 11:50] LABS: Amorphous Sediment,Urine Moderate (Few); Granular Casts,Urine Few per lpf (None Seen); Mucus,Urine Moderate (Few); RBC,Urine 0-3 per hpf (0-3)
--- NOTE | 2017-01-19 14:01 | Internal Med History&Physical ---
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 inspector insulin use: without long-term use Qualified Code(s): E11.8 - Type 2 diabetes mellitus with unspecified complications (3) Vertigo Current visit: Yes Status: Acute Add scheduled Meclizine, OT eval and treatment , Counselling on rehab , need OT follow up , Ruthann Lau , with her risk factors of CVA check Brain MRI (4) Hypokalemia Current visit: Yes Status: Acute Replace all electrolytes (5) UTI (urinary tract infection) Current visit: Yes Status: Acute Start Ciprofloxacin Qualifiers: Qualified Code(s): N39.0 - Urinary tract infection, site not specified Internal Medicine - H&P: HPI Chief complaint: dizzeness , abdominal pain Admitted From: Home History of present illness: Ms. Vizcaino is a 61 year old female with significant family H/o of CVA, H/o BPV. Patient brought to the Emergency room for evaluation for dizzeness . Patient was seen by family physician ,she was diagnosed with diverticulitis , She started t take flagyl , after taking flagyl today , She has flare up to her Vertigo , had sever dizziness , persistent nausea and vomiting more than times. Patient denies any Cp or sob Past Med Surg Social Fam HX - Past Medical History Medical history: diabetes, hypertension Psychiatric history: depression, other (Diverticulosis, BPV) - Social History Smoking Status: Never smoker Smokeless Tobacco Status: No Alcohol use: none Drug use: none - Family History Father Living Status: Mother Living Status: Internal Medicine - H&P: Meds Aspirin 81 mg PO DAILY 10/13/16 [History] Fenofibrate Nanocrystallized [Tricor] 145 mg PO DAILY 10/13/16 [History] Lactobacillus Acidophilus [Acidophilus Probiotic] 1 mg PO DAILY 10/13/16 [ History] Loratadine [Allergy Relief] 10 mg PO DAILY 10/13/16 [History] Losartan Potassium [Cozaar] 100 mg PO DAILY 10/13/16 [History] Omeprazole 40 mg PO DAILY 10/13/16 [History] metFORMIN [Glucophage] 500 mg PO BIDWM 10/13/16 [History] Psyllium Husk [Daily Fiber] 0.52 gm PO DAILY 12/18/16 [History] amLODIPine [Norvasc] 5 mg PO DAILY 01/19/17 [History] 3 Allergy/AdvReac Type Severity Reaction Status Date / Time No Known Allergies Allergy Verified 01/19/17 13:23 All Systems PM: A 10-system review of systems was performed and is negative for pertinent findings except as documented above in the HPI. - Constitutional Vitals: Temp Pulse Resp BP Pulse Ox 98.7 F 91 18 165/99 94 01/19/17 11:02 01/19/17 13:25 01/19/17 13:25 01/19/17 11:02 01/19/17 13:25 General appearance: Present: pleasant - Head Head exam: Present: atraumatic, normocephalic - Respiratory Respiratory exam: Present: decreased breath sounds. Absent: accessory muscle use, rales, rhonchi, wheezes - GI/Abdominal GI/Abdominal exam: Present: normal bowel sounds, soft, tenderness (Mild diffuse abdominal tenderness more in left LQ ), no peritoneal signs. Absent: distended - Extremities Exam Extremities exam: Present: warm, radial pulses palpable and symmetrical. Absent : calf tenderness, cyanotic, pedal edema - Neurological Exam Neurological exam: Present: CN II-XII intact, oriented X3, no focal deficits. Absent: pronater drift, facial droop, speech deficit - Skin Skin exam: Present: dry, intact Internal Med - H&P Results - Labs CBC & Chem 7: 01/19/17 11:23 01/19/17 11:23 Labs: Short CBC 01/19/17 Range/Units 11:23 WBC 8.7 (4.3-11.1) K/mcL Hgb 14.6 (11.5-15.4) g/dL Hct 41.8 (35.3-44.9) % Plt Count 257 (140-400) K/mcL Neutrophils # 7.6 (1.6-8.9) K/mcL BMP 01/19/17 11:23 Sodium 139 Potassium 3.4 L Chloride 103 Carbon Dioxide 21 BUN 21 H Creatinine 0.89 Glucose 179 H Calcium 10.1 Cardiac Enzymes 01/19/17 Range/Units 11:23 Troponin I 0.00 (0-0.03) ng/mL Urine 01/19/17 Range/Units 11:15 Urine Color [place] A (Yellow) Urine Clarity Cloudy A (Clear) Urine pH 8.5 H (5.0-8.0) pH Units Ur Specific [place] > 1.030 H (1.010-1.025) Urine Protein 100 H (Neg-Trace) mg/dL Urine Glucose (UA) Normal (Normal) mg/dL - Impressions ITS Impressions Chest X-Ray 01/19/17 11:04 IMPRESSION: No active cardiopulmonary disease D/ / Nehemias Valenzuela MD / Nehemias Valenzuela MD Interpreting Provider: Nehemias Valenzuela MD Head CT 01/19/17 11:04 IMPRESSION: No acute intracranial abnormality. D/ / Jermaine Martínez MD / Jermaine Martínez MD Interpreting Provider: Jermaine Martínez MD Abdomen/Pelvis CT 01/19/17 11:06 IMPRESSION: 1. Uncomplicated sigmoid diverticulitis 2. Hepatic steatosis D/ / Nehemias Valenzuela MD / Nehemias Valenzuela MD Interpreting Provider: Nehemias Valenzuela MD
[2017-01-19] MEDS ORDERED: Naloxone 0.4 MG/ML INJ IVP PRN (14:45)
[2017-01-19] MEDS ORDERED: Acetaminophen 325 MG TABLET PO PRN (14:45)
[2017-01-19] MEDS ORDERED: *HR* HYDROcodone/Acet 5/325 mg TABLET PO PRN (14:45)
[2017-01-19 15:05] LABS: Magnesium 1.8 mg/dL (1.6-2.6); Phosphorous 1.1 mg/dL (2.3-4.7)
[2017-01-19] MEDS: Lactobacillus 1 EACH CAP.SPRINK PO SCH ×2 (18:15→21:48)
[2017-01-19] MEDS: D5% in 0.45% NACL 1,000 ML IVC SCH (18:53)
[2017-01-19] MEDS ORDERED: Potassium Phosphate 44 MEQ in 0.9 % Sodium Chloride 250 ML IVPB ONE (19:50)
[2017-01-19] MEDS: MetroNIDAZOLE 500 MG/100 ML 500 MG/100 ML BAG IVPB SCH ×2 (20:05→23:39)
[2017-01-20 04:28] LABS: Basophils % 0.4 %; Eosinophils # 0.2 K/mcL (0.0-0.6); Eosinophils % 4.1 %; Hematocrit 37.7 % (35.3-44.9); Immature Granulocytes % 0.2 % (0-4); Lymphocytes # 1.4 K/mcL (0.6-4.6); Lymphocytes % 30.7 %; Mean Corpuscular HGB Conc 33.7 g/dL (31.6-35.5); Mean Corpuscular Hemoglobin 28.5 pg (28.0-33.3); Mean Corpuscular Volume 84.5 fL (83.0-100.0); Mean Platelet Volume 11.5 fL (9.4-12.4); Monocytes # 0.5 K/mcL (0.0-1.3); Monocytes % 10.7 %; Neutrophils # 2.5 K/mcL (1.6-8.9); Platelet Count 243 K/mcL (140-400); Red Blood Count 4.46 M/mcL (3.82-4.97); Segmented Neutrophils % 53.9 %
[2017-01-20 04:34] LABS: Hemoglobin 12.7 g/dL (11.5-15.4)
[2017-01-20 04:47] LABS: BUN/Creatinine Ratio 16 (6-26); Blood Urea Nitrogen 12 mg/dL (7-20); Calcium 8.9 mg/dL (8.6-10.8); Carbon Dioxide 24 mEq/L (19-29); Chloride 108 mEq/L (98-109); Chol/HDL Ratio 5.7 (0-4.9); Cholesterol 155 mg/dL (< 200); Glucose 159 mg/dL (70-99); HDL Cholesterol 27 mg/dL (40-59); LDL Cholesterol,Calculated 106 mg/dL (0-99); Osmolality,Calculated 295 (280-300); Potassium 4.1 mEq/L (3.5-4.5); Sodium 141 mEq/L (136-145); Triglycerides 111 mg/dL (< 150); eGFR For African Americans > 60 (> 60); eGFR For Non-African Americans > 60 (> 60)
[2017-01-20] MEDS: D5% in 0.45% NACL 1,000 ML IVC SCH (06:24)
[2017-01-20] MEDS: Lactobacillus 1 EACH CAP.SPRINK PO SCH (08:26)
[2017-01-20] MEDS: MetroNIDAZOLE 500 MG/100 ML 500 MG/100 ML BAG IVPB SCH (08:29)
--- NOTE | 2017-01-20 14:00 | Event Note ---
Date of Encounter: 01/20/17 Time of Encounter: 10:00 Patient seen and examined, tolerated full liquid diet, dizziness is better, I discussed with staff about occupational therapy, with advanced diet and monitor , in view of interest or Flagyl may consider Augmentin, possible discharge later today
[2017-01-20 15:12] VITALS: BP 118/68
--- NOTE | 2017-01-20 17:29 | Electrocardiograph Report ---
[place] [email or web address] Test Date: 2017-01-19 Pat Name: Eraline Vizcaino Department: 102 Room: 3B46 Gender: F Director Of Radio Services: Mikel : 1955 Requested By: Kurt Campos Order Number: [id number] Reading MD: Pernell Gardner MD Measurements Intervals [place] Rate: 92 P: 59 OK: 162 QRS: 54 QRSD: 78 T: 15 QT: 359 QTc: 408 Interpretive Statements SINUS RHYTHM WITH OCCASIONAL VENTRICULAR PREMATURE COMPLEXES NONSPECIFIC ST & T-WAVE ABNORMALITY Electronically Signed On 01-20-2017 17:28:04 EDT by Pernell Gardner MD
--- NOTE | 2017-01-20 18:08 | Internal Med Progress Note ---
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 use: without nursing home use Qualified Code(s): E11.8 - Type 2 diabetes mellitus with unspecified complications (3) Vertigo Current Visit: Yes Status: Acute (4) Hypokalemia Current Visit: Yes Status: Acute (5) UTI (urinary tract infection) Current Visit: Yes Status: Acute Assessment and plan: Continue Augmentin on discharge Qualifiers: Qualified Code(s): N39.0 - Urinary tract infection, site not specified - Constitutional Vitals: Temp Pulse Resp BP Pulse Ox 97.6 F 72 16 118/68 97 01/20/17 15:12 01/20/17 15:12 01/20/17 15:12 01/20/17 15:12 01/20/17 15:12 General appearance: Present: pleasant - Head Head exam: Present: atraumatic, normocephalic - Neck Neck exam general surgery: Present: supple, trachea midline. Absent: lymphadenopathy - Respiratory Respiratory exam: Present: CTAB. Absent: accessory muscle use, rales, rhonchi, wheezes - Cardiovascular Cardiovascular exam: Present: RRR, +S1, +S2. Absent: diastolic murmur, gallop, rubs, systolic murmur - GI/Abdominal GI/Abdominal exam: Present: normal bowel sounds, soft, tenderness (Mild and do not tenderness but does not yesterday), no peritoneal signs. Absent: distended - Extremities Exam Extremities exam: Present: warm. Absent: calf tenderness, cyanotic, pedal edema - Neurological Exam Neurological exam: Present: CN II-XII intact, no focal deficits. Absent: motor sensory deficit Internal Medicine: Result - Labs CBC & Chem 7: 01/20/17 03:41 01/20/17 03:41 Labs: Short CBC 01/20/17 Range/Units 03:41 WBC 4.6 (4.3-11.1) K/mcL Hgb 12.7 D (11.5-15.4) g/dL Hct 37.7 (35.3-44.9) % Plt Count 243 (140-400) K/mcL Neutrophils # 2.5 (1.6-8.9) K/mcL BMP 01/20/17 03:41 Sodium 141 Potassium 4.1 Chloride 108 Carbon Dioxide 24 BUN 12 Creatinine 0.76 Glucose 159 H Calcium 8.9 Consult Discharge Plan - Plan Referrals: Ortega Carbone MD [Primary Care Provider] - 01/28/17 2:15 pm
--- NOTE | 2017-01-20 18:13 | Discharge Summary ---
Date of Encounter: 01/20/17 Time of Encounter: 18:00 - Discharge Diagnosis (1) Diverticulitis Priority: Primary Status: Acute Qualifiers: Diverticulitis site: large intestine Diverticulitis bleeding: without bleeding Diverticulitis complication: without perforation or abscess Qualified Code(s): K57.32 - Diverticulitis of large intestine without perforation or abscess without bleeding (2) Diabetes mellitus Priority: Secondary Status: Chronic Qualifiers: Diabetes mellitus type: type 2 Diabetes mellitus complication status: with unspecified complications Diabetes mellitus termite inspector insulin use: without halfway use Qualified Code(s): E11.8 - Type 2 diabetes mellitus with unspecified complications (3) Vertigo Priority: Primary Status: Acute Code(s): R42 - Dizziness and giddiness (4) Hypokalemia Priority: Secondary Status: Acute Code(s): E87.6 - Hypokalemia (5) UTI (urinary tract infection) Priority: Secondary Status: Acute Qualifiers: Code(s): N39.0 - Urinary tract infection, site not specified - Discharge Medications Home Medications: Aspirin 81 mg PO DAILY 10/13/16 [History] Fenofibrate Nanocrystallized [Tricor] 145 mg PO DAILY 10/13/16 [History] Lactobacillus Acidophilus [Acidophilus Probiotic] 1 mg PO DAILY 10/13/16 [ History] Loratadine [Allergy Relief] 10 mg PO DAILY 10/13/16 [History] Losartan Potassium [Cozaar] 100 mg PO DAILY 10/13/16 [History] Omeprazole 40 mg PO DAILY 10/13/16 [History] metFORMIN [Glucophage] 500 mg PO BIDWM 10/13/16 [History] Psyllium Husk [Daily Fiber] 0.52 gm PO DAILY 12/18/16 [History] amLODIPine [Norvasc] 5 mg PO DAILY 01/19/17 [History] Acetaminophen [Tylenol] 650 mg PO Q6HR PRN #60 tablet 01/20/17 [Rx] Amoxicillin/Clavulanate [Augmentin] 875 mg PO BIDWM #20 tablet 01/20/17 [Rx] Docusate [Colace] 200 mg PO DAILY capsule 01/20/17 [Rx] Lactobacillus [Culturelle] 1 each PO BID #60 cap.sprink 01/20/17 [Rx] Meclizine [Antivert] 25 mg PO TID #60 tablet 01/20/17 [Rx] Allergies/Adverse Reactions: 3 Allergy/AdvReac Type Severity Reaction Status Date / Time No Known Allergies Allergy Verified 01/19/17 13:23 Date of admission: 01/19/17 15:57 Primary care physician: Ortega Carbone MD Discharging clinician: Jhon Box Anticipated date of discharge: 01/20/17 - Patient Status Disposition: Home, Self-Care Condition: Fair Functional capacity at discharge: independent ambulation Overall status at discharge: patient is progressing back to baseline - Discharge Instructions Instructions: Diverticulitis (DC), Urinary Tract Infection in Women (DC) Follow Up With: Ortega Carbone MD [Primary Care Provider] - 01/28/17 2:15 pm - Diet and Activity Activity: increase activity as tolerated Diet: advance to your usual diet (Diverticular diet ) Hospital course: Ms. Vizcaino is a 61 year old female with significant family H/o of CVA, H/o BPV. Patient brought to the Emergency room for evaluation for dizziness . Patient was seen by family physician ,she was diagnosed with diverticulitis , She started taking flagyl , after taking flagyl , She has flare up to her Vertigo , had sever dizziness , persistent nausea and vomiting more than 20 times. Patient was admitted to the hospital with her symptoms and feeling unsteady. Patient was admitted overnight no arrhythmia noted on monitor. Will start patient on ciprofloxacin and Flagyl IV. stool for DBC was positive. Stool culture and stool for C. difficile is pending ,discussed with patient to follow- up with family doctor. With her intolerance to Flagyl ,patient was started on Augmentin. Patient had urine analysis positive for UTI and final culture showed no gross . We started clear liquid diet advanced as tolerated, patient tolerated all her meals. With her significant family history of stroke fasting lipid profile was done which show low HDL and high LDL patient needs to have aggressive management for her lipid Discussed with patient to follow-up with family doctor patient currently on [employer]. Counseling patient about diverticular diet, counseling patient about risk of constipation. Patient tolerated all her meals she is willing to go home she is feeling much better. Marked improvement of her dizziness. Occupational therapy came and evaluated the patient and dad gave patient recommendation. Patient will need to follow- up with Joslyn Wilkinson for further monitoring. Patient need aggressive management for her lipid and blood sugar with her family history of stroke. - Time Spent with Patient Total time spent providing and/or coordinating discharge services: - Constitutional Vitals: Temp Pulse Resp BP Pulse Ox 97.6 F 72 16 118/68 97 01/20/17 15:12 01/20/17 15:12 01/20/17 15:12 01/20/17 15:12 01/20/17 15:12 General appearance: Present: pleasant
== END 2017-01-20 19:22 | disposition home or self-care (01) ==
LOC: 3BNU 10:58 → EMEROO 10:58 → 3BNU 17:32
PROVIDERS: ADMIT Family Medicine; ATTEND Registered Nurse